=== PATIENT | female | born 1965 ===

== ENCOUNTER 2017-03-15 08:08 | Day surgery (SDC) | payer OTHER ==
[2017-03-15 09:18] VITALS: BMI 23.3
[2017-03-15] MEDS ORDERED: Lactated Ringer's 1,000 ML IV ONE ×2 (11:25)
[2017-03-15] MEDS ORDERED: Propofol 10 mg/ml Inj (20 ML) ONE (11:26)
[2017-03-15] MEDS ORDERED: Simethicone 40 mg/0.6 ml Liquid (30 ml) ONE (11:33)
[2017-03-15] MEDS ORDERED: Lactated Ringer's 500 ML IV SCH (11:45)
[2017-03-15 12:10] VITALS: TEMP 97.1; O2SAT 100
[2017-03-15 13:20] VITALS: BP 99/53; PULSE 63; RESP 16
== END 2017-03-15 13:15 | disposition home or self-care (01) ==
LOC: C.ENDO 08:08
PROVIDERS: ATTEND Internal Medicine Gastroenterology
DX: K64.8 Other hemorrhoids (principal)
CPT/HCPCS: 45378; J2704; J7120